=== PATIENT | male | born 1940 | race Hispanic/Latino ===

== ENCOUNTER 2023-07-19 07:24 | Day surgery (SDC) | payer OTHER ==
[2023-07-17 15:03] VITALS: BP 162/84; PULSE 97; RESP 15
[2023-07-17 15:05] LABS: BASOPHILS # (AUTO) 0.07 K/uL (0.00-0.20); BASOPHILS % (AUTO) 0.9 % (0.0-5.0); EOSINOPHILS # (AUTO) 0.67 K/uL (0.00-0.70); EOSINOPHILS % (AUTO) 8.9 % (0.0-8.0); HEMATOCRIT 41.1 % (42-54); IMMATURE GRANULOCYTE ABSOLUTE 0.03 K/uL (0-1); LYMPHOCYTES # (AUTO) 1.8 K/uL (1.0-4.8); LYMPHOCYTES % (AUTO) 23.9 % (21.0-51.0); MEAN CORPUSCULAR HEMOGLOBIN 31.8 pg (27.0-33.0); MEAN CORPUSCULAR HGB CONC 34.8 g/dL (32.0-36.0); MEAN CORPUSCULAR VOLUME 91.3 fL (79-99); MONOCYTES # (AUTO) 0.6 K/uL (0.1-1.0); MONOCYTES % (AUTO) 7.9 % (3.0-13.0); NEUTROPHILS # (AUTO) 4.4 K/uL (1.8-7.7); PLATELET COUNT (AUTO) 194 K/uL (130-400); RED CELL DISTRIBUTION WIDTH 14.2 % (11.0-15.5); WHITE BLOOD COUNT (AUTO) 7.5 K/uL (4.8-10.8)
[2023-07-17 15:22] LABS: CREATININE 1.4 mg/dL (0.5-1.5); POTASSIUM 4.1 mmol/L (3.5-5.1)
[~2023-07-19] VITALS: Ht 175.3 cm; Wt 92.0 kg
[2023-07-19] VITALS (19 sets, daily range): BP systolic 128–160; BP diastolic 54–88; PULSE 56–74; RESP 14–18
[~2023-07-19 07:24] MED LIST: ALLO100T PO; AMLO-257 PO; ATOR10TA69 PO; COLC0.6T73 PO; MIRA25TA PO; TAMS-1 PO
[2023-07-19] MEDS ORDERED: LACTATED RINGERS 1000ML 1,000 ML IV ONE (08:29)
[2023-07-19] MEDS ORDERED: FAMOTIDINE 20MG VIAL IV ONE (09:12)
[2023-07-19] MEDS ORDERED: PROPOFOL 10 MG/ML 20ML VIAL IV ONE (09:28)
[2023-07-19] MEDS ORDERED: SUCCINYLCHOLINE CHLORIDE 20 MG/ML 10 ML VIAL ONE (09:28)
[2023-07-19] MEDS ORDERED: GLYCOPYRROLATE 0.2 MG/ML 5 ML VIAL ONE (09:28)
[2023-07-19] MEDS ORDERED: LIDOCAINE PF 100MG/5ML (2%) SYRINGE 5ML ONE (09:28)
[2023-07-19] MEDS ORDERED: ROCURONIUM BROMIDE 10MG/1ML 5ML VL ONE (09:28)
[2023-07-19] MEDS ORDERED: FENTANYL CITRATE PF 50 MCG/1 ML 2ML VIAL ONE (09:29)
[2023-07-19] MEDS ORDERED: ONDANSETRON 4MG INJ ONE (09:58)
[2023-07-19] MEDS ORDERED: MITOMYCIN 40 MG SYR.W..INJ INJ SCH (10:00)
[2023-07-19] MEDS ORDERED: CEFTRIAXONE 1G VIAL ONE (10:49)
== END 2023-07-19 13:15 | disposition home or self-care (01) ==
LOC: DAH 07:24
PROVIDERS: ATTEND Urology
DX: C67.9 Malignant neoplasm of bladder, unspecified (principal); N30.20 Other chronic cystitis without hematuria; N40.0 Benign prostatic hyperplasia without lower urinary tract symptoms; I10 Essential (primary) hypertension; E78.5 Hyperlipidemia, unspecified; M10.9 Gout, unspecified; Z87.891 Personal history of nicotine dependence; Z79.899 Other long term (current) drug therapy; Z98.890 Other specified postprocedural states; Z90.49 Acquired absence of other specified parts of digestive tract; Z88.8 Allergy status to other drugs, medicaments and biological substances
CPT/HCPCS: 80048; 85025; 36415; 52204; 93005; 88305; A4663; J7120 ×2; A4344; A4354; C1758; J3490; J3010; J2001; J0696; J2704; J2405; J9280; A4358; A4930; A4215; A4223; A4213; A4222; A4221; A4600; A4510; J0330